=== PATIENT | female | born 1990 | race Caucasian/White ===

== ENCOUNTER → 2023-08-06 | Outpatient (CLI) | payer BC, SELFPAY ==
--- NOTE | 2023-08-06 12:42 | MRI_ITS ---
STUDY: MRI CERVICAL SPINE WITHOUT CONTRAST REASON FOR EXAM: Female, 33 years old. Left-sided neck pain with radiculopathy x 20 yrs. TECHNIQUE: Standardized fat and water weighted pulse sequences were obtained in the sagittal and axial planes. COMPARISON: Cervical spine radiographs 11/25/2014. FINDINGS: Normal foramen magnum and brainstem-cervical cord junction. Normal craniovertebral junction. Normal anterior atlantoaxial articulation. Normal odontoid process. Mild to moderate cervical kyphosis at the C4-C5 disc space level. Small posterior C3 benign vertebral body hemangioma. No other focal signal abnormalities throughout the osseous elements of the cervical spine and included upper thoracic spine. Normal vertebral body heights and alignment. C2-3: Normal endplates. Normal disc height, signal and morphology. Normal central canal and intervertebral neural foramina. C3-4: Normal endplates. Normal disc height, signal and morphology. Normal central canal and intervertebral neural foramina. C4-5: Normal endplates. Normal disc height, signal and morphology. Normal central canal and intervertebral neural foramina. C5-6: Normal endplates. Mild disc space height narrowing. Normal central canal and intervertebral neural foramina. C6-7: Normal endplates. Normal disc height, signal and morphology. Normal central canal and intervertebral neural foramina. C7-T1: Normal endplates. Normal disc height, signal and morphology. Normal central canal and intervertebral neural foramina. T1-T2, T2-T3, T3-T4 and T4-T5: (Sagittal only). Normal endplates. Normal disc height, signal and morphology. Normal central canal and intervertebral neural foramina. Normal cervical cord. Normal upper thoracic spinal cord. Normal included portions of the midline brainstem and cerebellum. Normal included midline pituitary gland, suprasellar cistern, infundibular stalk and anterior third ventricle. Normal visualized soft tissue structures. MRI/Spine Cervical (Routine) IMPRESSION: 1. No MRI evidence of cervical extruded disc fragment, cervical disc protrusion, spinal stenosis or cervical nerve root displacement. 2. Mild to moderate cervical kyphosis at the C4-C5 disc space level. 3. Normal cervical spinal cord. Electronically Signed: Sreedhar Goddard MD at 12:11 EDT ,
== END | disposition home or self-care (01) ==
PROVIDERS: Referring Provider Anesthesiology; Visit Provider Anesthesiology
DX: M54.12 Radiculopathy, cervical region (principal)
CPT/HCPCS: 72141

== ENCOUNTER → 2025-03-10 | Outpatient (CLI) | payer BC, SELFPAY ==
[2025-03-10 17:42] LABS: Hematocrit 42.5 % (37-47); Hemoglobin 13.7 g/dL (12.0-15.0); Immature Granulocytes Count 0.020 X10^3/uL (0.0-0.0); Mean Corp Hgb Conc 32.2 g/dL (32-36); Mean Corpuscular Volume 92.0 fL (81-99); Mean Platelet Vol. 10.9 fl (6.2-12.0); NRBC Flagged by Analyzer 0 % (0-5); Platelet Count 235 K/mm3 (150-450); RBC Distribution Width CV 12.4 % (11.6-14.6); RBC Distribution Width SD 42.1 fl (35.1-43.9); Red Blood Count 4.62 M/mm3 (4.2-5.4); White Blood Count 8.2 K/mm3 (4.4-11.0)
[2025-03-10 18:23] LABS: Ferritin 91 ng/mL (22-378); Vitamin D,25 Hydroxy 61.9 ng/mL (30-100)
[2025-03-14 14:08] LABS: Zinc, Plasma or Serum 79 ug/dL (44-115)
== END | disposition home or self-care (01) ==
LOC: MTLAB 15:38
PROVIDERS: Referring Provider Dermatology; Visit Provider Dermatology
DX: L65.0 Telogen effluvium (principal)
CPT/HCPCS: 36415; 82306; 82728; 84439; 84443; 84630; 85025; 86376